=== PATIENT | female | born 1990 | race Hispanic/Latino ===

== ENCOUNTER 2023-11-15 07:30 | Day surgery (SDC) | payer MEDICAID ==
[2023-11-12 11:09] LABS: BASOPHILS # (AUTO) 0.06 K/uL (0.00-0.20); BASOPHILS % (AUTO) 0.7 % (0.0-5.0); EOSINOPHILS # (AUTO) 0.14 K/uL (0.00-0.70); EOSINOPHILS % (AUTO) 1.7 % (0.0-8.0); IMMATURE GRANULOCYTE ABSOLUTE 0.03 K/uL (0-1); LYMPHOCYTES # (AUTO) 2.7 K/uL (1.0-4.8); MEAN CORPUSCULAR HEMOGLOBIN 29.6 pg (27.0-33.0); MEAN CORPUSCULAR HGB CONC 32.8 g/dL (32.0-36.0); MEAN CORPUSCULAR VOLUME 90.1 fL (79-99); MONOCYTES # (AUTO) 0.5 K/uL (0.1-1.0); MONOCYTES % (AUTO) 5.8 % (3.0-13.0); NEUTROPHILS # (AUTO) 4.9 K/uL (1.8-7.7); NEUTROPHILS % (AUTO) 59.4 % (40.0-77.0); PLATELET COUNT (AUTO) 238 K/uL (130-400); RED BLOOD CELL COUNT(AUTO) 4.77 MIL/uL (4.00-5.50); RED CELL DISTRIBUTION WIDTH 12.9 % (11.0-15.5); WHITE BLOOD COUNT (AUTO) 8.3 K/uL (4.8-10.8)
[2023-11-12 11:10] VITALS: BP 137/76; PULSE 79; RESP 16
[2023-11-12 11:16] LABS: CREATININE 0.8 mg/dL (0.5-1.0); POTASSIUM 4.3 mmol/L (3.5-5.1)
[2023-11-12 11:21] LABS: INR 0.95 (0.85-1.15); PROTHROMBIN TIME 11.2 SEC (9.6-11.6)
[2023-11-12 11:22] LABS: PARTIAL THROMBOPLASTIN TIME 31.3 SEC (26.3-35.5)
[~2023-11-15] VITALS: Ht 180.3 cm; Wt 140.9 kg
[2023-11-15] VITALS (10 sets, daily range): BP systolic 102–143; BP diastolic 48–70; PULSE 50–69; RESP 13–18
[~2023-11-15 07:30] MED LIST: ACET-2247 PO; CYCL-309 PO; DABI150C PO; DAPA10TA PO; ESCI20TA38 PO; HYDR-3422 PO; METO-391 PO; METO-408 PO; SACU1TAB PO; SPIR25TA6 PO; TRAZ-185 PO
[2023-11-15] MEDS ORDERED: MIDAZOLAM HCL 1 MG/ML 2ML VIAL ONE ×2 (09:54→10:54)
[2023-11-15] MEDS ORDERED: MEPERIDINE-PF 25 MG/ML SYG ONE ×2 (09:54→10:54)
[2023-11-15] MEDS ORDERED: ISOPROTERENOL HCL 0.2 MG/ML AMP/VIAL/BAG ONE (09:54)
[2023-11-15] MEDS ORDERED: HEPARIN 10,000 UNIT/10ML (1,000 UNIT/ML) VIAL ONE (09:54)
[2023-11-15] MEDS ORDERED: LIDOCAINE HCL 400MG/20ML VIAL ONE (09:54)
[2023-11-15] MEDS: 0.9%NACL 1000ML 1,000 ML IV ONE (10:32)
[2023-11-15] MEDS ORDERED: IOHEXOL-350 50ML VIAL IV ONE (12:16)
== END 2023-11-15 17:00 | disposition home or self-care (01) ==
LOC: DAH 07:30
PROVIDERS: ATTEND Internal Medicine Cardiovascular Disease
DX: I49.3 Ventricular premature depolarization (principal); I42.0 Dilated cardiomyopathy; I50.9 Heart failure, unspecified; Z79.01 Long term (current) use of anticoagulants; Z79.899 Other long term (current) drug therapy
CPT/HCPCS: 80048; 84703; 85025; 85610; 85730; 36415; 93005 ×2; 93654; 93623; C1894 ×5; C1760; C1893; C1731; A4649 ×2; C1732; J3490 ×2; J7030; J1644 ×3; J2250; J2175; Q9967; A4215; A4222; A4221; A4663; A4216; A4606; A4223 ×3; 99156; 99157